=== PATIENT | female | born 1960 | race Caucasian/White ===

== ENCOUNTER 2018-05-23 16:22 | Emergency (ER) | payer BC ==
[2018-05-23 16:43] VITALS: BP 111/60
--- NOTE | 2018-05-23 16:51 | UC ---
FLU HPI - HPI Summary HPI Summary: Today with flulike symptoms, fever, chills, bodyaches, scratchy throat, dry cough. - History of Current Complaint Chief Complaint: UCRespiratory Stated Complaint: FEVER, AND CONGESTION Time Seen by Provider: 05/23/18 16:48 Hx Obtained From: Patient ?: No Onset/Duration: Sudden Onset Severity Currently: Moderate Severity Initially: Moderate Pain Intensity: 0 Associated Signs & Symptoms: Positive: Fever, Myalgia, Cough - dry cough, Sore Throat - Scratchy throat Related Hx: Possible Flu/Infectious Exposure - She works in a [employer] system - Allergy/Home Medications Allergies/Adverse Reactions: Allergies Allergy/AdvReac Type Severity Reaction Status Date / Time No Known Allergies Allergy Verified 05/23/18 16:43 PMH/Surg Hx/FS Hx/Imm Hx Previously Healthy: Yes - Surgical History Surgical History: Yes Surgery Procedure, Year, and Place: breast cyst 2013 - Family History Known Family History: Positive: None - Social History Alcohol Use: Weekly Alcohol Amount: 4 PER WEEK Substance Use Type: None Smoking Status (MU): Never Smoked Tobacco Review of Systems All Other Systems Reviewed And Are Negative: Yes Constitutional: Positive: Fever, Chills ENT: Positive: Sore Throat - Scratchy throat Respiratory: Positive: Cough - Dry cough Musculoskeletal: Positive: Myalgia Neurological: Positive: Headache - mild headache Is Patient Immunocompromised?: No Physical Exam Triage Information Reviewed: Yes Appearance: Well-Appearing, No Pain Distress, Well-Nourished Vital Signs: Initial Vital Signs Temp 100.7 F 05/23/18 16:38 Pulse 94 05/23/18 16:38 Resp 14 05/23/18 16:38 BP 111/60 05/23/18 16:38 Pulse Ox 97 05/23/18 16:38 Vital Signs Reviewed: Yes Eye Exam: Normal ENT: Positive: Hearing grossly normal, Pharynx normal, TMs normal, Uvula midline. Negative: Tonsillar swelling, Tonsillar exudate, Trismus, Muffled voice, Hoarse voice Neck exam: Normal Neck: Positive: Supple, Nontender, No Lymphadenopathy Respiratory Exam: Normal Cardiovascular Exam: Normal Abdominal Exam: Normal Abdomen Description: Positive: Nontender, No Organomegaly, Soft Bowel Sounds: Positive: Present Musculoskeletal Exam: Normal Neurological Exam: Normal Psychological Exam: Normal Skin Exam: Normal Flu Course/Dx - Course Course Of Treatment: Patient has been comfortable here. Rapid influenza test was positive for influenza A. Prescription for Tamiflu was sent to her pharmacy. She is to increase fluids and follow-up with her primary care provider if no improvement or if worsening symptoms early next week. - Differential Dx/Diagnosis Differential Diagnosis/HQI/PQRI: Influenza Provider Diagnosis: Influenza A Discharge - Sign-Out/Discharge Documenting (check all that apply): Patient Departure All imaging exams completed and their final reports reviewed: No Studies - Discharge Plan Condition: Fair Disposition: HOME Prescriptions: Oseltamivir CAP* [Tamiflu CAP*] 75 mg PO BID 5 Days #10 cap Patient Education Materials: Influenza (DC) Referrals: Rosy Berry MD [Primary Care Provider] - Additional Instructions: Increase fluids, Tylenol every 4 hours and Motrin every 6-8 hours for fever. Definite follow-up with your primary care provider on Friday or Friday if no improvement or if worsening symptoms. - Billing Disposition and Condition Condition: FAIR Disposition: Home
[2018-05-23 17:07] LABS: Influenza A Molecular POSITIVE (Negative)
== END 2018-05-23 17:27 | disposition home or self-care (01) ==
LOC: UCEAST 16:22
DX: J11.1 Influenza due to unidentified influenza virus with other respiratory manifestations (principal)
CPT/HCPCS: 99212; G0463